=== PATIENT | female | born 1995 | race Two or more races ===

== ENCOUNTER 2017-11-01 10:35 | Emergency (ER) | payer BC, OTHER ==
[2017-11-01] MEDS ORDERED: Ketorolac 30 MG/ML SDV IVPUSH ONE (10:54)
[2017-11-01] MEDS ORDERED: Sodium Chloride 0.9% 10 ML Syringe FLUSH PRN (10:54)
--- NOTE | 2017-11-01 10:59 | EDM.PDOC ---
ED HPI GENERAL MEDICAL PROBLEM - General Chief Complaint: Back Pain or Injury Stated Complaint: Ill x 6 days, recent midback pain, recent hx of UTI Time Seen by Provider: 11/01/17 10:48 Source of Information: Reports: Patient, EMS, EMS Notes Reviewed History Limitations: Reports: No Limitations - History of Present Illness INITIAL COMMENTS - FREE TEXT/NARRATIVE: Olena comes to [facility] ED by EMS after feeling numbness sensations in the lower back and legs while driving to the ED. She has been ill for about 6 days with some back ache, and was diagnosed with a UTI 5 days ago, placed on Macrobid. Sxs have persisted, and seemed to escalate last pm with R CVA pain, some nausea and emesis x 4. She denies fever, chills, sweats, or voiding sxs. Of interest is a PMH of chronic midback pain R>L since age 12. She has had prior hospitalizations for similar pain on at least 3 other occasions in [place], but a cause was not determined with certainty. She has known nephrocalcinosis, but intervention has not been needed. - Related Data Allergies Allergy/AdvReac Type Severity Reaction Status Date / Time No Known Allergies Allergy Verified 11/01/17 11:01 Home Meds: Home Meds traMADol [Ultram] 50 mg PO Q4H PRN #20 tab 11/01/17 [Rx] Past Medical History Genitourinary History: Reports: Pyelonephritis (2017, hospitalized in [place] for urosepsis), Other (See Below) (sponge kidneys diagnosed 6 years ago) ED ROS GENERAL - Review of Systems Review Of Systems: See Below Constitutional: Reports: Malaise, Decreased Appetite HEENT: Reports: No Symptoms Respiratory: Reports: No Symptoms Cardiovascular: Reports: No Symptoms Endocrine: Reports: No Symptoms GI/Abdominal: Reports: Nausea, Vomiting : Reports: Flank Pain (R CVA beginning last pm) Musculoskeletal: Reports: Back Pain Skin: Reports: No Symptoms Neurological: Reports: No Symptoms Psychiatric: Reports: No Symptoms Hematologic/Lymphatic: Reports: No Symptoms Immunologic: Reports: No Symptoms ED EXAM, GENERAL - Physical Exam Exam: See Below Exam Limited By: No Limitations General Appearance: Alert, WD/WN, Mild Distress Eye Exam: Bilateral Eye: EOMI, Normal Inspection, PERRL Ears: Normal External Exam Nose: Normal Inspection Throat/Mouth: Normal Inspection, Normal Oropharynx Head: Normocephalic Neck: Normal Inspection, Supple, Non-Tender, Full Range of Motion Respiratory/Chest: Lungs Clear, Normal Breath Sounds, Chest Non-Tender Cardiovascular: Normal Peripheral Pulses, Regular Rate, Rhythm, No Edema, No Murmur GI/Abdominal: Normal Bowel Sounds, Soft, No Organomegaly, No Distention, No Mass , Pelvis Stable, Tender (mild RUQ) (Female) Exam: Deferred Rectal (Female) Exam: Deferred Back Exam: Normal Inspection, CVA Tenderness (R), CVA Tenderness (L), Decreased Range of Motion Extremities: Normal Inspection, Normal Range of Motion, Non-Tender Neurological: Alert, Oriented, CN II-XII Intact, Normal Cognition, No Motor/ Sensory Deficits Psychiatric: Normal Affect, Normal Mood Skin Exam: Warm, Dry, Intact, Normal Color Lymphatic: No Adenopathy Course - Vital Signs Text/Narrative:: Following assessment, I started an IV in the LUE, and administered 30 mg of Toradol IV,1L NS pending results of studies: CBC baseline, K 2.6 meq/l; UA notes 75 WBCs, 25 RBCs, lg leuko est, UC pending; CRP 4.1, Lactic a 1.1; case discussed with hospitalist and proceed with Dilaudid 2 mg IV and Rocephin 2 gm IV and ordered Abd-Pelvic CT wo contrast: no hydronephrosis, no stranding; bilateral calcinosis without obstruction; no other findings affecting internal organs. Re examination notes L CVA pain minor, R CVA pain improved. She will be discharged on Tramadol, and follow up with a PCP this week. A UTI could not be confirmed at this time. Last Recorded V/S: Last Vital Signs Temp 37.4 C 11/01/17 10:35 Pulse 100 11/01/17 10:35 Resp 22 H 11/01/17 10:35 BP 121/89 11/01/17 10:35 Pulse Ox 100 11/01/17 10:35 - Orders/Labs/Meds Orders: Active Orders 24 hr Category Date Time Status Abdomen Pelvis wo Cont [CT] Stat Exams 11/01/17 12:39 Taken CULTURE BLOOD [BC] Urgent Lab 11/01/17 11:02 Received CULTURE BLOOD [BC] Urgent Lab 11/01/17 11:07 Received CULTURE URINE [RM] Stat Lab 11/01/17 11:42 Ordered UA W/MICROSCOPIC [URIN] Stat Lab 11/01/17 11:42 Ordered Sodium Chloride 0.9% [Normal Saline] 1,000 ml Med 11/01/17 11:00 Active IV ASDIRECTED Sodium Chloride 0.9% [Normal Saline] 1,000 ml Med 11/01/17 12:45 Active IV ASDIRECTED Sodium Chloride 0.9% [Saline Flush] Med 11/01/17 10:54 Active 10 ml FLUSH ASDIRECTED PRN Blood Culture x2 Reflex Set [OM.PC] Urgent Oth 11/01/17 10:54 Ordered Peripheral IV Insertion Adult [OM.PC] Routine Oth 11/01/17 10:54 Ordered EKG 12 Lead [EK] Routine Ther 11/01/17 10:40 Ordered Medication Orders Sodium Chloride (Normal Saline) 1,000 mls @ 500 mls/hr IV ASDIRECTED ROBBIN Last Admin: 11/01/17 11:21 Dose: 500 mls/hr Sodium Chloride (Normal Saline) 1,000 mls @ 500 mls/hr IV ASDIRECTED ROBBIN Last Admin: 11/01/17 13:29 Dose: 500 mls/hr Sodium Chloride (Saline Flush) 10 ml FLUSH ASDIRECTED PRN PRN Reason: Keep Vein Open Last Admin: 11/01/17 11:20 Dose: 10 ml Labs: Laboratory Tests 11/01/17 11/01/17 11/01/17 Range/Units 11:02 11:02 11:42 WBC 9.3 (4.5-12.0) X10-3/uL RBC 4.94 (3.23-5.20) x10(6)uL Hgb 13.4 (11.5-15.5) g/dL Hct 41.0 (30.0-51.3) % MCV 82.9 (80-96) fL MCH 27.1 L (27.7-33.6) pg MCHC 32.7 (32.2-35.4) g/dL RDW 12.6 (11.5-15.5) % Plt Count 170 (125-369) X10(3)uL MPV 8.8 (7.4-10.4) fL Neut % (Auto) 77.7 (46-82) % Lymph % (Auto) 11.8 L (13-37) % Mcpherson % (Auto) 5.1 (4-12) % Eos % (Auto) 1 (1.0-5.0) % Baso % (Auto) 5 H (0-2) % Neut # (Auto) 7.2 (1.6-8.3) # Lymph # (Auto) 1.1 (0.6-5.0) # Mcpherson # (Auto) 0.5 (0.0-1.3) # Eos # (Auto) 0.1 (0.0-0.8) # Baso # (Auto) 0.4 H (0.0-0.2) # Sodium 141 (135-145) mmol/L Potassium 2.6 L* (3.5-5.3) mmol/L Chloride 104 (100-110) mmol/L Carbon Dioxide 27 (21-32) mmol/L BUN 9 (7-18) mg/dL Creatinine 0.8 (0.55-1.02) mg/dL Est Cr Clr Drug Dosing 115.28 mL/min Estimated GFR (MDRD) > 60 (>60) BUN/Creatinine Ratio 11.3 (9-20) Glucose 91 (80-116) mg/dL Lactic Acid (0.4-2.2) mmol/L Calcium 8.8 (8.6-10.2) mg/dL C-Reactive Protein (0.5-0.9) mg/dL Urine Color Yellow (YELLOW) Urine Appearance Slightly cloudy (CLEAR) Urine pH 8.0 H (5.0-6.5) Ur Specific [place] 1.015 (1.010-1.025) Urine Protein Negative (NEGATIVE) mg/dL Urine Glucose (UA) Normal (NEGATIVE) mg/dL Urine Ketones 15 H (NEGATIVE) mg/dL Urine Occult Blood Moderate H (NEGATIVE) Urine Nitrite Negative (NEGATIVE) Urine Bilirubin Negative (NEGATIVE) Urine Urobilinogen Normal (NEGATIVE) mg/dL Ur Leukocyte Esterase Large H (NEGATIVE) Urine RBC 20-30 H (0) Urine WBC 50-75 H (0) Ur Squamous Epith Cells Many H (NS,R,O) Urine Bacteria Many H (NS) 11/01/17 11/01/17 Range/Units 11:55 11:55 WBC (4.5-12.0) X10-3/uL RBC (3.23-5.20) x10(6)uL Hgb (11.5-15.5) g/dL Hct (30.0-51.3) % MCV (80-96) fL MCH (27.7-33.6) pg MCHC (32.2-35.4) g/dL RDW (11.5-15.5) % Plt Count (125-369) X10(3)uL MPV (7.4-10.4) fL Neut % (Auto) (46-82) % Lymph % (Auto) (13-37) % Mcpherson % (Auto) (4-12) % Eos % (Auto) (1.0-5.0) % Baso % (Auto) (0-2) % Neut # (Auto) (1.6-8.3) # Lymph # (Auto) (0.6-5.0) # Mcpherson # (Auto) (0.0-1.3) # Eos # (Auto) (0.0-0.8) # Baso # (Auto) (0.0-0.2) # Sodium (135-145) mmol/L Potassium (3.5-5.3) mmol/L Chloride (100-110) mmol/L Carbon Dioxide (21-32) mmol/L BUN (7-18) mg/dL Creatinine (0.55-1.02) mg/dL Est Cr Clr Drug Dosing mL/min Estimated GFR (MDRD) (>60) BUN/Creatinine Ratio (9-20) Glucose (80-116) mg/dL Lactic Acid 1.1 (0.4-2.2) mmol/L Calcium (8.6-10.2) mg/dL C-Reactive Protein 4.1 H* (0.5-0.9) mg/dL Urine Color (YELLOW) Urine Appearance (CLEAR) Urine pH (5.0-6.5) Ur Specific [place] (1.010-1.025) Urine Protein (NEGATIVE) mg/dL Urine Glucose (UA) (NEGATIVE) mg/dL Urine Ketones (NEGATIVE) mg/dL Urine Occult Blood (NEGATIVE) Urine Nitrite (NEGATIVE) Urine Bilirubin (NEGATIVE) Urine Urobilinogen (NEGATIVE) mg/dL Ur Leukocyte Esterase (NEGATIVE) Urine RBC (0) Urine WBC (0) Ur Squamous Epith Cells (NS,R,O) Urine Bacteria (NS) Meds: Medications Generic Name Dose Route Start Last Admin Trade Name Freq PRN Reason Stop Dose Admin Sodium Chloride 1,000 mls @ 500 mls/hr 11/01/17 11:00 11/01/17 11:21 Normal Saline IV 500 mls/hr ASDIRECTED ROBBIN Administration Sodium Chloride 1,000 mls @ 500 mls/hr 11/01/17 12:45 11/01/17 13:29 Normal Saline IV 500 mls/hr ASDIRECTED ROBBIN Administration Sodium Chloride 10 ml 11/01/17 10:54 11/01/17 11:20 Saline Flush FLUSH 10 ml ASDIRECTED PRN Administration Keep Vein Open Discontinued Medications Generic Name Dose Route Start Last Admin Trade Name Frejb PRN Reason Stop Dose Admin Hydromorphone HCl 2 mg 11/01/17 12:42 11/01/17 13:15 Dilaudid IVPUSH 11/01/17 12:43 2 mg ONETIME ONE Administration Ceftriaxone Sodium 2 gm/ 100 mls @ 200 mls/hr 11/01/17 12:38 11/01/17 13:33 Sodium Chloride IVPUSH 11/01/17 13:07 Not Given ONETIME ONE Ceftriaxone Sodium 2 gm/ 100 mls @ 200 mls/hr 11/01/17 13:11 11/01/17 13:30 Sodium Chloride IVPUSH 11/01/17 13:40 200 mls/hr ONETIME ONE Administration Ketorolac Tromethamine 30 mg 11/01/17 10:54 11/01/17 11:21 Toradol IVPUSH 11/01/17 10:55 30 mg ONETIME ONE Administration Potassium Chloride 40 meq 11/01/17 11:41 11/01/17 11:53 Klor-Con M20 PO 11/01/17 11:42 40 meq ONETIME ONE Administration Departure - Departure Time of Disposition: 14:54 Disposition: Home, Self-Care 01 Condition: Fair Clinical Impression: Medullary sponge kidney of both kidneys - Discharge Information Prescriptions: traMADol [Ultram] 50 mg PO Q4H PRN #20 tab PRN Reason: Breakthrough Pain Referrals: Susy Hope DEVELOPER PROGRAMMER [Primary Care Provider] - Forms: ED Department Discharge - Problem List & Annotations (1) Medullary sponge kidney of both kidneys SNOMED Code(s): 939529251 Code(s): Q61.5 - MEDULLARY CYSTIC KIDNEY Status: Acute Current Visit: Yes Annotation/Comment:: I dispensed Tramadol 50 mg taken 1 or 2 tabs q 6 hrs prn for pain, hydration, and follow up with PCP tomorrow. A preliminary UC report should be available at that time. - Problem List Review Problem List Initiated/Reviewed/Updated: Yes - My Orders Last 24 Hours: My Active Orders 11/01/17 10:40 EKG 12 Lead [EK] Routine 11/01/17 10:54 Sodium Chloride 0.9% [Saline Flush] 10 ml FLUSH ASDIRECTED PRN Blood Culture x2 Reflex Set [OM.PC] Urgent Peripheral IV Insertion Adult [OM.PC] Routine 11/01/17 11:00 Sodium Chloride 0.9% [Normal Saline] 1,000 ml IV ASDIRECTED 11/01/17 11:02 CULTURE BLOOD [BC] Urgent 11/01/17 11:07 CULTURE BLOOD [BC] Urgent 11/01/17 11:42 CULTURE URINE [RM] Stat UA W/MICROSCOPIC [URIN] Stat 11/01/17 12:39 Abdomen Pelvis wo Cont [CT] Stat 11/01/17 12:45 Sodium Chloride 0.9% [Normal Saline] 1,000 ml IV ASDIRECTED - Assessment/Plan Last 24 Hours: My Active Orders 11/01/17 10:40 EKG 12 Lead [EK] Routine 11/01/17 10:54 Sodium Chloride 0.9% [Saline Flush] 10 ml FLUSH ASDIRECTED PRN Blood Culture x2 Reflex Set [OM.PC] Urgent Peripheral IV Insertion Adult [OM.PC] Routine 11/01/17 11:00 Sodium Chloride 0.9% [Normal Saline] 1,000 ml IV ASDIRECTED 11/01/17 11:02 CULTURE BLOOD [BC] Urgent 11/01/17 11:07 CULTURE BLOOD [BC] Urgent 11/01/17 11:42 CULTURE URINE [RM] Stat UA W/MICROSCOPIC [URIN] Stat 11/01/17 12:39 Abdomen Pelvis wo Cont [CT] Stat 11/01/17 12:45 Sodium Chloride 0.9% [Normal Saline] 1,000 ml IV ASDIRECTED Plan: Follow up with PCP tomorrow.
[2017-11-01] MEDS ORDERED: Sodium Chloride 0.9% 1,000 ML IV SCH ×2 (11:00→12:45)
[2017-11-01] MEDS ORDERED: Potassium Chloride 20 MEQ Tab.ER PO ONE (11:41)
[2017-11-01] MEDS ORDERED: cefTRIAXone 2 GM in Sodium Chloride 0.9% 100 ML IVPUSH ONE ×2 (12:38→13:11)
[2017-11-01] MEDS ORDERED: HYDROmorphone 2 MG/ML SDV IVPUSH ONE (12:42)
== END 2017-11-01 15:33 | disposition home or self-care (01) ==
LOC: FB.ED 10:35
DX: Q61.5 Medullary cystic kidney (principal)
CPT/HCPCS: 36415; 74176; 80048; 81001; 83605; 85025; 86140; 87040; 87086; 93005; 96361; 96374; 96375; 99285; A9270; J0696; J1170; J1885; J7030; J7050